=== PATIENT | male | born 1945 | race Caucasian/White ===

== ENCOUNTER 2016-10-09 08:34 | Day surgery (SDC) | payer MEDICARE ==
[~2016-10-09] VITALS: Ht 175.3 cm; Wt 113.8 kg
== END 2016-10-09 12:05 | disposition home or self-care (01) ==
LOC: RAD.S 08:34
PROC: 07DR3ZX Extraction of Iliac Bone Marrow, Percutaneous Approach, Diagnostic (ICD-10-PCS; principal; 2016-10-09)
DX: D75.1 Secondary polycythemia (principal); R16.1 Splenomegaly, not elsewhere classified; Z88.0 Allergy status to penicillin; Z88.8 Allergy status to other drugs, medicaments and biological substances

== ENCOUNTER 2016-10-13 13:22 | Emergency (ER) | payer MEDICARE ==
--- NOTE | 2016-10-16 16:05 | ER ---
ADMIT: 10/13/2016 RM/LOC: ER [facility] MR#: [id number] [address] [facility] [address] [place] [id number] EDILSON NUÑEZ [place] [address] Emergency Room Report SEX: M AGE: 71 : 1945 DATE: 10/13/2016 BRIEF ADDENDUM: Please see my T-sheet for complete review of systems, past medical history, and physical exam. CHIEF COMPLAINT: Today is dizziness and shakiness. HISTORY OF PRESENT ILLNESS: This is a 71-year-old white male, who presents to the ED via EMS after an episode of lightheadedness at a prior to arrival. The patient states he was not feeling well this morning and was considering not going to the , however, he did attend, made it to service and when he was standing in the line for the spa receptionist for food, he began having increased shakiness and just feeling poorly. States he did not feel like he was going to pass out. His son was able to stable him and get him to a chair. Does have significant recent history as he was hospitalized in [place] with atrial fibrillation, subsequently transferred to [facility] for cardioversion. He was released yesterday, felt fine through the night. States he does feel better now that he is in the department. Does admit he has had some increasing cough but thinks this may be secondary to the endoscopy they did at the [facility]. PAST MEDICAL HISTORY: For atrial fibrillation, coronary artery disease, hypertension, multiple sclerosis, COPD, and hyperlipidemia. He did take his first dose of Eliquis today for the atrial fibrillation. COURSE IN EMERGENCY ROOM: GENERAL: Patient seen and examined. He is afebrile and nontoxic. He is in no acute distress. He is alert, mildly diaphoretic. RESPIRATORY: Breath sounds are clear bilaterally. No wheezes, rhonchi, or rales. HEART: Regular rate and rhythm. No murmurs, gallops, or rubs. ABDOMEN: Does have some left upper quadrant tenderness, which he states is chronic for him. SKIN: Mildly diaphoretic but intact. EXTREMITIES: Nontender. No pedal edema. NEURO: He is alert and oriented x4. Cranial nerves are normal as tested. Motor is equal in the upper and lower extremities compared bilaterally. Sensation is intact in the upper and lower extremities. LABORATORY DATA: CBC white count 7.5, hemoglobin 16.5, hematocrit 49.2, platelets 320. Chemistries unremarkable other than potassium 3.5. CK 155, CK- MB 1.2, and troponin less than 0.015. Chest x-ray shows no acute infiltrates, some cardiomegaly that is stable. EKG shows sinus rhythm, rate of [address]-T or Q wave abnormalities. I was able to get the patient to eat some food ADMIT: 10/13/2016 RM/LOC: [facility] MR#: [id number] [address] [place] [id number] SAVANNAH, EDILSON [place] [address] Emergency Room Report SEX: M AGE: 71 : 1945 and have a drink. He states he is feeling back to his baseline at this point. He is comfortable going home with followup with Dr. Reynaga next week. IMPRESSION: 1. Paroxysmal atrial fibrillation, currently sinus on anticoagulation. 2. Multiple sclerosis. 3. Possible anxiety reaction. DISPOSITION: Patient discharged home to follow up with Dr. Reynaga next week. Continue all his home medications as prescribed. He should rest for the rest of the day, activity as tolerated. Continue to encourage fluids. Questions sought and answered to best of my ability and the patient's satisfaction. Discharged home in stable condition. ALEJANDRO Gregg / Obi Fierro MD / anabelle JOB #: [id number] CC: Obi Fierro MD, Attending Physician
== END 2016-10-13 15:30 | disposition home or self-care (01) ==
LOC: ER 13:22
DX: I48.0 Paroxysmal atrial fibrillation (principal); F41.1 Generalized anxiety disorder; G35 Multiple sclerosis; I10 Essential (primary) hypertension; J44.9 Chronic obstructive pulmonary disease, unspecified; E78.5 Hyperlipidemia, unspecified; Z88.0 Allergy status to penicillin; Z79.01 Long term (current) use of anticoagulants; Z79.82 Long term (current) use of aspirin; Z79.899 Other long term (current) drug therapy; Z91.041 Radiographic dye allergy status

== ENCOUNTER → 2017-02-05 | Outpatient (CLI) | payer MEDICARE | END | disposition home or self-care (01) | DX: R10.9 Unspecified abdominal pain (principal) ==